=== PATIENT | male | born 1960 ===

== ENCOUNTER 2017-11-20 07:36 | Outpatient (CLI) | payer OTHER | END 2017-11-21 17:04 | disposition home or self-care (01) | LOC: MRI 07:36 | DX: R74.0 Nonspecific elevation of levels of transaminase and lactic acid dehydrogenase [LDH] (principal); K76.0 Fatty (change of) liver, not elsewhere classified; Z86.010 Personal history of colon polyps | CPT/HCPCS: 74181 ==